=== PATIENT | male | born 1965 | race African-American/Black ===

== ENCOUNTER 2018-12-11 12:01 | Inpatient (IN) | payer BC ==
[2018-12-11 13:22] VITALS: BMI 37.2
--- NOTE | 2018-12-11 15:21 | HP ---
COWS - Scale Resting Pulse: 1= MO 81-100 Sweatin=Flushed/Facial Moisture Restless Observation: 0= Sits Still Pupil Size: 0= Normal to Room Light Bone or Joint Aches: 2= Severe Diffuse Aches Runny Nose/ Eye Tearin= Runny Nose/Eyes GI Upset > 30mins: 0= None Tremor Observation: 1= Tremor [place], Not Seen Yawning Observation: 1= 1-2x During Session Anxiety or Irritability: 1=Feels Anxious/Irritable Goose Flesh Skin: 0=Smooth Skin COWS Score: 10 CIWA Score Nausea/Vomitin-No Nausea/No Vomiting Muscle Tremors: 1-None Visible, but [place] Anxiety: 2 Agitation: 0-Normal Activity Paroxysmal Sweats: 1-Minimal Palms Moist Orientation: 2-Disoriented Date<2 days Tacttile Disturbances: 2-Mild Itch/Numbness/Burn Auditory Disturbances: 1-Very Mild Visual Disturbances: 0-None Headache: 3-Moderate (states chronic headache related to hypertension Reports auditory disturbances that "make him jump out of his skin.") CIWA-Ar Total Score: 12 - Admission Criteria OASAS Guidelines: Admission for Medically Managed Detox: Requires at least one of the followin. CIWA greater than 12 2. Seizures within the past 24 hours 3. Delirium tremens within the past 24 hours 4. Hallucinations within the past 24 hours 5. Acute intervention needed for co occurring medical disorder 6. Acute intervention needed for co occurring psychiatric disorder 7. Severe withdrawal that cannot be handled at a lower level of care (continued vomiting, continued diarrhea, abnormal vital signs) requiring intravenous medication and/or fluids 8. Patient presents the following: Seizures, delirium tremens or hallucinations in the past 12 hours, None of the above Admission Criteria Met: Admission criteria met Admission [facility] Chief Complaint: Patient here for admission for drug treatment. States that his brother recently and his family brought him in. Patient was here in July for Drug treatment for PCP. Allergies/Adverse Reactions: Allergies Allergy/AdvReac Type Severity Reaction Status Date / Time No Known Allergies Allergy Verified 12/11/18 13:12 - Ebola screening Have you traveled outside of the country in the last 21 days: No Have you had contact with anyone from an Ebola affected area: No Have you been sick,other than usual withdrawal symptoms: No Do you have a fever: No - Review of Systems Constitutional: Chills, Fever EENT: reports: Blurred Vision, Double Vision Respiratory: reports: Shortness of Breath, SOB at Rest Cardiac: reports: Lightheadedness, Syncope GI: reports: No Symptoms Reported : reports: No Symptoms Reported Musculoskeletal: reports: Back Pain, Joint Pain, Muscle Pain, Joint Stiffness Integumentary: reports: No Symptoms Reported Neuro: reports: Headache, Unsteady Gait, Other (Reports that he was in [facility] for a brain injury, unable to supply details. Patient is poor historian.) Endocrine: reports: Increased Thirst, Increased Urine Hematology: reports: No Symptoms Reported Psychiatric: reports: Anxious, Disorientated (Does not recall the date, believes it to be 12/08; thought he was in [facility], not [facility]) Patient History - Patient Medical History Hx Anemia: No Hx Asthma: No Hx Chronic Obstructive Pulmonary Disease (COPD): No Hx Cancer: No Hx Cardiac Disorders: No Hx Congestive Heart Failure: No Hx Hypertension: Yes Hx Hypercholesterolemia: No Hx Pacemaker: No HX Cerebrovascular Accident: No Hx Seizures: Yes (Believes he has seizures, but is not sure, has "fallen out.") Hx Dementia: No Hx Diabetes: No Hx Gastrointestinal Disorders: No Hx Liver Disease: No Hx Genitourinary Disorders: No Hx Sexually Transmitted Disorders: No Hx Renal Disease (ESRD): No Hx Thyroid Disease: No Hx Human Immunodeficiency Virus (HIV): No Hx Hepatitis C: No Hx Depression: Yes (has been treated in the past, care discontinued, reason unknown) Hx Suicide Attempt: No Hx Bipolar Disorder: No Hx Schizophrenia: Yes (dx 10 years ago, was dx and tx at [facility] ) - Patient Surgical History Past Surgical History: Yes Hx Abdominal Surgery: Yes (hernia repair x3, dates unknown) Hx Appendectomy: Yes (date unknown) - PPD History Previous Implant?: Yes Documented Results: Negative w/o proof Implanted On Prior [facility] Admission?: No PPD to be Administered?: Yes - Reproductive History Patient is a Female of Child Bearing Age (11 -55 yrs old): No - Smoking Cessation Smoking history: Current every day smoker Have you smoked in the past 12 months: Yes Aproximately how many cigarettes per day: 20 Hx Chewing Tobacco Use: No Initiated information on smoking cessation: Yes 'Breaking Loose' booklet given: 12/11/18 - Substance & Tx. History Hx Alcohol Use: Yes Hx Substance Use: Yes Substance Use Type: Alcohol, Marijuana Hx Substance Use Treatment: Yes (Treated at [facility] in july 2018) - Substances abused Alcohol Substance route: Oral Frequency: Daily Amount used: quart of whiskey and wine Age of first use: 11 Date of last use: 12/11/18 PCP Substance route: Smoking Frequency: 3-6 times per week Amount used: 4 bags Age of first use: 11 Date of last use: 12/11/18 (this morning) Marijuana/Hashish Substance route: Smoking Frequency: Daily Amount used: $25 Age of first use: 11 Date of last use: 12/11/18 Family Disease History - Family Disease History Family Disease History: Diabetes: Grandparent, Father, Mother, [place]: Grandparent, Respiratory: Brother Admission Physical Exam [facility] - Vital Signs Vital Signs: Vital Signs - 24 hr 12/11/18 13:11 Temperature 99 F Pulse Rate 90 Respiratory 18 Rate Blood Pressure 171/108 H - Physical General Appearance: Yes: Nourished, Appropriately Dressed, Mild Distress, Irritable HEENTM: Yes: Hearing grossly Normal, Normocephalic, Normal Voice, KEVIN, Pharynx Normal, Other (edentulism) Respiratory: Yes: Chest Non-Tender, No Respiratory Distress, No Accessory Muscle Use, Wheezing, Expiration Neck: Yes: No masses,lesions,Nodules, Supple, Trachea in good position Breast: Yes: Breast Exam Deferred Cardiology: Yes: Regular Rhythm, Regular Rate, S1, S2 Abdominal: Yes: Normal Bowel Sounds, Non Tender, Soft, Protuberent Genitourinary: Yes: Frequency, Nocturia Back: Yes: Decreased Range of Motion (Limited lateral movement and forward bend. ) Musculoskeletal: Yes: Gait Steady, Other (limited hip joint range of motion.) Extremities: Yes: Normal Capillary Refill, Non-Tender Neurological: Yes: pullman conductor II-XII NML intact, Alert, Other (oriented to self, provider oriented to place, time and date x 3) Lymphatic: Yes: Within Normal Limits - Diagnostic (1) EtOH dependence Current Visit: Yes Status: Chronic Qualifiers: Substance use status: alcohol-induced sleep disorder Qualified Code(s): F10.282 - Alcohol dependence with alcohol-induced sleep disorder (2) PCP abuse Current Visit: Yes Status: Acute (3) Cannabis abuse Current Visit: Yes Status: Acute Cleared for Admission S - Detox or Rehab [facility] Level of Care: Medically Supervised Detox Regimen/Protocol: Librium Claeared for Rehab Admission: No (Patient will be admitted to Detox) Screened but not Admitted - Documentation of Visit Screened but not Admitted: No Breathalyzer - Breathalyzer Breathalyzer: 0 Urine Drug Screen - Test Device Lot number: [id number] Expiration date: 09/11/20 - Control Is test valid?: Yes - Results Drug screen NEGATIVE: No Urine drug screen results: THC-Marijuana Inpatient Rehab Admission - Rehab Decision to Admit Inpatient rehab admission?: No - Initial Determination Are CD services needed?: No Free of communicable disease: Yes Not in need of hospitalization: Yes
[2018-12-11] MEDS ORDERED: MAGNESIUM HYDROX 2400MG/30ML ORAL SUSPENSION 30 ML CUP PO PRN (16:03)
[2018-12-11] MEDS ORDERED: MENTHOL/PHENOL 1 EACH UD MM PRN (16:03)
[2018-12-11] MEDS ORDERED: hydrOXYzine PAMOATE 25 MG CAPSULE (FP) PO PRN (16:03)
[2018-12-11] MEDS ORDERED: IBUPROFEN 400 MG TABLET (FP) PO PRN (16:03)
[2018-12-11] MEDS ORDERED: ACETAMINOPHEN 325 MG TABLET (FP) PO PRN ×2 (16:03)
[2018-12-11] MEDS ORDERED: MAGNESIUM CITRATE 300 ML BOTTLE PO PRN (16:03)
[2018-12-11] MEDS ORDERED: BISMUTH SUBSALICYLATE 524 MG/30 ML UD PO PRN (16:03)
[2018-12-11] MEDS ORDERED: MELATONIN 5 MG TABLETS PO PRN (16:03)
[2018-12-11] MEDS ORDERED: MAG HYDROX/AL HYDROX/SIMETH 30 ML UNIT-DOSE CUP PO PRN (16:03)
[2018-12-11] MEDS ORDERED: NICOTINE POLACRILEX 2 MG GUM BUC PRN (16:03)
[2018-12-11] MEDS ORDERED: chlordiazePOXIDE HCL 25 MG CAPSULE PO PRN (16:07)
[2018-12-11] MEDS ORDERED: LISINOPRIL 10 MG TABLET (FP) PO SCH (16:15)
[2018-12-11] MEDS: chlordiazePOXIDE HCL 25 MG CAPSULE PO SCH ×2 (17:40→22:08)
[2018-12-11] MEDS: THIAMINE HCL 100 MG TABLET (FP) PO SCH (22:08)
[2018-12-12] MEDS: chlordiazePOXIDE HCL 25 MG CAPSULE PO SCH ×4 (05:01→22:05)
--- NOTE | 2018-12-12 09:48 | PN ---
S CIWA - CIWA Score Nausea/Vomitin-Mild Nausea/No Vomiting Muscle Tremors: 3 Anxiety: 1-Mildly Anxious Agitation: 2 Paroxysmal Sweats: 1-Minimal Palms Moist Orientation: 0-Oriented Tacttile Disturbances: 1-Very Mild Itch/Numbness Auditory Disturbances: 0-None Visual Disturbances: 0-None Headache: 2-Mild CIWA-Ar Total Score: 11 BHS Progress Note (SOAP) Subjective: 53 years old male admitted on 12/11/18 for acute alcohol withdrawal sx management doing well with librium detox regimen less headaches mild tremor Objective: 12/12/18 09:48 Vital Signs Temperature 96.6 F L 12/12/18 09:21 Pulse Rate 77 12/12/18 09:21 Respiratory Rate 18 12/12/18 09:21 Blood Pressure 150/96 12/12/18 09:21 O2 Sat by Pulse Oximetry (%) 12/12/18 09:49 lab pending Assessment: 12/12/18 09:49 alcohol withdrawal sx Plan: continue alcohol detox
[2018-12-12] MEDS: LISINOPRIL 10 MG TABLET (FP) PO SCH (10:06)
[2018-12-12] MEDS: PRENATAL VITAMINS W/ FOLIC ACID TABLET (FP) PO SCH (10:06)
[2018-12-12 10:25] LABS: HEMOGLOBIN 13.7 GM/dL (11.7-16.9); MCH 32.1 pg (25.7-33.7); MCHC 33.4 g/dl (32.0-35.9); MEAN CELL VOLUME 95.9 fl (80-96); MEAN PLT VOLUME 7.6 fl (7.5-11.1); PLATELET COUNT 253 K/MM3 (134-434); RBC 4.28 M/mm3 (4.00-5.60); WHITE BLOOD COUNT 6.3 K/mm3 (4.0-10.0)
[2018-12-12 11:00] LABS: ALBUMIN 3.5 g/dl (3.4-5.0); BILIRUBIN,TOTAL 0.4 mg/dL (0.2-1); BLOOD UREA NITROGEN 11.2 mg/dL (7-18); CREATININE 1.1 mg/dL (0.55-1.3); POTASSIUM 4.3 mmol/L (3.5-5.1); TOT PROT 6.8 g/dl (6.4-8.2)
[2018-12-12] MEDS ORDERED: SCOPOLAMINE HYDROBROMIDE 1 PATCH PATCH.TD72 TD SCH (11:30)
--- NOTE | 2018-12-12 12:01 | CONSULT ---
[facility] Psychiatric Consult - Data Date of interview: 12/12/18 Admission source: [facility] Identifying data: First admission to [facility] for this 53 y/o AA male self- referred for detoxification (phencyclidine, cannabis, alcohol, nicotine). Examined at [address] [place] [address]. Patient is , a father of two, domiciled, unemployed and supported on SSI/SSD benefits. Substance Abuse History: Confirmed by patient in this interview. Details in current [facility] report as follows : Smoking history: Current every day smoker. Have you smoked in the past 12 months: Yes. Aproximately how many cigarettes per day: 20. Hx Chewing Tobacco Use: No. Initiated information on smoking cessation: Yes. 'Breaking Loose' booklet given: 12/11/18. - Substance & Tx. History. Hx Alcohol Use: Yes. Hx Substance Use: Yes. Substance Use Type: Alcohol, Marijuana. Hx Substance Use Treatment: Yes (Treated at [facility] in july 2018). - Substances abused. Alcohol. Substance route: Oral. Frequency: Daily. Amount used: quart of whiskey and wine. Age of first use: 11. Date of last use: 12/11/18. PCP. Substance route: Smoking. Frequency: 3-6 times per week. Amount used: 4 bags. Age of first use: 11. Date of last use: (this morning). Marijuana/Hashish. Substance route: Smoking. Frequency : Daily. Amount used: $25. Age of first use: 11. Date of last use: 12/11/18 Medical History: Remarkable for a history of herniorraphies, hypertension, withdrawal-related seizures and appendectomy. Psychiatric History: Patient admits to a history of two psychiatric hospitalizations ([facility]). Diagnosed with Schizophrenia. Mr Sosa reports past treatment with risperdal + cogentin. Not taken since 2011. Patient denies current affiliation with psychiatric care providers (was followed at [facility] clinic about eight years ago). Patient presents with a history of suicide attempts (self-mutilation, wrist-cutting). Physical/Sexual Abuse/Trauma History: Patient denies. Additional Comment: Urine drug screen results: THC-Marijuana. Noted. Mental Status Exam - Mental Status Exam Alert and Oriented to: Time, Place, Person Cognitive Function: Good Patient Appearance: Well Groomed (edentulous) Mood: Hopeful, Euthymic Affect: Appropriate, Normal Range Patient Behavior: Fatigued, Cooperative Speech Pattern: Clear, Appropriate Voice Loudness: Normal Thought Process: Goal Oriented Thought Disorder: Not Present Hallucinations: Denies Suicidal Ideation: Denies Homicidal Ideation: Denies Insight/Judgement: Poor Sleep: Poorly, Difficulty falling asleep Appetite: Good Muscle strength/Tone: Normal Gait/Station: Normal Psychiatric Findings - Problem List ([place] 1, 2,3) (1) EtOH dependence Current Visit: Yes Status: Chronic Qualifiers: Substance use status: alcohol-induced sleep disorder Qualified Code(s): F10.282 - Alcohol dependence with alcohol-induced sleep disorder (2) Cannabis abuse Current Visit: Yes Status: Chronic (3) Nicotine dependence Current Visit: Yes Status: Chronic (4) PCP abuse Current Visit: Yes Status: Chronic (5) Insomnia Current Visit: Yes Status: Chronic (6) History of schizophrenia Current Visit: Yes Status: Chronic (7) Non-compliance Current Visit: Yes Status: Chronic - Initial Treatment Plan Initial Treatment Plan: Psychoeducation. Sleep hygiene. Detoxification. AA meetings. Relapse prevention : discussed with patient. Insomnia is addressed with melatonin at bedtime. Side effects/benefits discussed. Verbal consent granted to MD. Mr Sosa declines to resume risperdal (he remains asymptomatic ) but he is agreeable with a referral to [facility] at the completion of detoxification course. Discussed with counselor Sai Wisdom with patient in attendance. Observation.
[2018-12-12] MEDS: cloNIDine HCL 0.1 MG TABLET PO PRN ×2 (12:52→22:05)
[2018-12-12] MEDS: MECLIZINE HCL 12.5 MG TABLET PO PRN (22:05)
[2018-12-12] MEDS: THIAMINE HCL 100 MG TABLET (FP) PO SCH (22:05)
[2018-12-13] MEDS: chlordiazePOXIDE HCL 25 MG CAPSULE PO SCH ×4 (05:08→22:29)
--- NOTE | 2018-12-13 09:13 | PN ---
[facility] CIWA - CIWA Score Nausea/Vomitin-Mild Nausea/No Vomiting Muscle Tremors: 3 Anxiety: 2 Agitation: 2 Paroxysmal Sweats: 1-Minimal Palms Moist Orientation: 0-Oriented Tacttile Disturbances: 1-Very Mild Itch/Numbness Auditory Disturbances: 0-None Visual Disturbances: 0-None Headache: 0-None Present CIWA-Ar Total Score: 10 S Progress Note (SOAP) Subjective: lonb history of hypertension doing well with lisinopril 10 mg po [id number] reduced S1S2 denies headache no blurred vision Objective: 12/13/18 09:15 Vital Signs Temperature 97.4 F L 12/13/18 06:04 Pulse Rate 71 12/13/18 06:04 Respiratory Rate 18 12/13/18 06:04 Blood Pressure 135/82 12/13/18 06:04 O2 Sat by Pulse Oximetry (%) Laboratory Last Values WBC 6.3 K/mm3 (4.0-10.0) 12/12/18 07:30 RBC 4.28 M/mm3 (4.00-5.60) 12/12/18 07:30 Hgb 13.7 GM/dL (11.7-16.9) 12/12/18 07:30 Hct 41.0 % (35.4-49) 12/12/18 07:30 MCV 95.9 fl (80-96) 12/12/18 07:30 MCH 32.1 pg (25.7-33.7) 12/12/18 07:30 MCHC 33.4 g/dl (32.0-35.9) 12/12/18 07:30 RDW 15.0 % (11.9-15.9) 12/12/18 07:30 Plt Count 253 K/MM3 (134-434) 12/12/18 07:30 MPV 7.6 fl (7.5-11.1) 12/12/18 07:30 Sodium 143 mmol/L (136-145) 12/12/18 07:30 Potassium 4.3 mmol/L (3.5-5.1) 12/12/18 07:30 Chloride 108 mmol/L (98-107) H 12/12/18 07:30 Carbon Dioxide 30 mmol/L (21-32) 12/12/18 07:30 Anion Gap 5 MMOL/L (8-16) L 12/12/18 07:30 BUN 11.2 mg/dL (7-18) 12/12/18 07:30 Creatinine 1.1 mg/dL (0.55-1.3) 12/12/18 07:30 Est GFR (CKD-EPI)AfAm 87.13 12/12/18 07:30 Est GFR (CKD-EPI)NonAf 75.17 12/12/18 07:30 Random Glucose 92 mg/dL (74-106) 12/12/18 07:30 Calcium 9.0 mg/dL (8.5-10.1) 12/12/18 07:30 Total Bilirubin 0.4 mg/dL (0.2-1) 12/12/18 07:30 AST 14 U/L (15-37) L 12/12/18 07:30 ALT 33 U/L (13-61) 12/12/18 07:30 Alkaline Phosphatase 59 U/L (45-117) 12/12/18 07:30 Total Protein 6.8 g/dl (6.4-8.2) 12/12/18 07:30 Albumin 3.5 g/dl (3.4-5.0) 12/12/18 07:30 RPR Titer Nonreactive (NONREACTIVE) 12/12/18 07:30 HIV 1&2 Antibody Screen Negative 12/12/18 07:30 HIV P24 Antigen Negative 12/12/18 07:30 lab noted Assessment: 12/13/18 09:15 alcohol withdrawal sx Plan: continue alcohol detox
[2018-12-13] MEDS: PRENATAL VITAMINS W/ FOLIC ACID TABLET (FP) PO SCH (10:21)
[2018-12-13] MEDS: cloNIDine HCL 0.1 MG TABLET PO PRN ×2 (10:23→17:30)
[2018-12-13] MEDS: LISINOPRIL 10 MG TABLET (FP) PO SCH (10:23)
[2018-12-13] MEDS: MECLIZINE HCL 12.5 MG TABLET PO PRN (17:30)
[2018-12-13] MEDS: THIAMINE HCL 100 MG TABLET (FP) PO SCH (22:29)
[2018-12-14] MEDS ORDERED: chlordiazePOXIDE HCL 10 MG CAPSULE PO PRN
[2018-12-14] MEDS: chlordiazePOXIDE HCL 10 MG CAPSULE PO SCH ×4 (05:15→22:03)
[2018-12-14] MEDS: PRENATAL VITAMINS W/ FOLIC ACID TABLET (FP) PO SCH (10:08)
[2018-12-14] MEDS: LISINOPRIL 10 MG TABLET (FP) PO SCH (10:10)
[2018-12-14] MEDS: cloNIDine HCL 0.1 MG TABLET PO PRN ×2 (10:10→22:03)
[2018-12-14] MEDS: MECLIZINE HCL 12.5 MG TABLET PO PRN ×2 (12:38→22:03)
[2018-12-14] MEDS ORDERED: LISINOPRIL 10 MG TABLET (FP) PO ONE (16:26)
--- NOTE | 2018-12-14 16:28 | PN ---
[facility] CIWA - CIWA Score Nausea/Vomitin-No Nausea/No Vomiting Muscle Tremors: None Anxiety: 4-Mod. Anxious/Guarded Agitation: 1-Slight > Activity Paroxysmal Sweats: No Perspiration Orientation: 0-Oriented Tacttile Disturbances: 1-Very Mild Itch/Numbness Auditory Disturbances: 2-Mild Harshness/Frighten Visual Disturbances: 0-None Headache: 0-None Present CIWA-Ar Total Score: 8 S Progress Note (SOAP) Subjective: Fatigue, Anxious. Objective: PATIENT A & O X 3, OBSERVED AMBULATING ON UNIT UNASSISTED. IN NO ACUTE DISTRESS. 12/14/18 16:24 Vital Signs Temperature 98.3 F 12/14/18 13:01 Pulse Rate 84 12/14/18 13:01 Respiratory Rate 18 12/14/18 13:01 Blood Pressure 150/98 12/14/18 13:01 O2 Sat by Pulse Oximetry (%) Laboratory Tests 12/12/18 12/12/18 12/12/18 07:30 07:30 07:30 WBC 6.3 RBC 4.28 Hgb 13.7 Hct 41.0 MCV 95.9 MCH 32.1 MCHC 33.4 RDW 15.0 Plt Count 253 MPV 7.6 Sodium 143 Potassium 4.3 Chloride 108 H Carbon Dioxide 30 Anion Gap 5 L BUN 11.2 Creatinine 1.1 Est GFR (CKD-EPI)AfAm 87.13 Est GFR (CKD-EPI)NonAf 75.17 Random Glucose 92 Calcium 9.0 Total Bilirubin 0.4 AST 14 L ALT 33 Alkaline Phosphatase 59 Total Protein 6.8 Albumin 3.5 RPR Titer Nonreactive HIV 1&2 Antibody Screen HIV P24 Antigen 12/12/18 07:30 WBC RBC Hgb Hct MCV MCH MCHC RDW Plt Count MPV Sodium Potassium Chloride Carbon Dioxide Anion Gap BUN Creatinine Est GFR (CKD-EPI)AfAm Est GFR (CKD-EPI)NonAf Random Glucose Calcium Total Bilirubin AST ALT Alkaline Phosphatase Total Protein Albumin RPR Titer HIV 1&2 Antibody Screen Negative HIV P24 Antigen Negative LABS NOTED. RESULTS OF DETOX ADMISSION QFT /TB TEST PENDING. 12/14/18 16:27 Assessment: 12/14/18 16:27 WITHDRAWAL SYMPTOMS. HYPERTENSION. Plan: CONTINUE DETOX. INCREASE DAILY DOSE OF LISINOPRIL TO 20 MG PO DAILY FOR ELEVATED BLOOD PRESSURE DESPITE TREATMENT.
[2018-12-14] MEDS: THIAMINE HCL 100 MG TABLET (FP) PO SCH (22:03)
[2018-12-15] MEDS ORDERED: chlordiazePOXIDE HCL 10 MG CAPSULE PO SCH (05:00)
[2018-12-15 09:22] VITALS: BP 148/96; PULSE 74; TEMP 98
[2018-12-15] MEDS ORDERED: LISINOPRIL 10 MG TABLET (FP) PO SCH (10:00)
[2018-12-15] MEDS: PRENATAL VITAMINS W/ FOLIC ACID TABLET (FP) PO SCH (10:08)
[2018-12-15] MEDS: MECLIZINE HCL 12.5 MG TABLET PO PRN (10:10)
--- NOTE | 2018-12-15 16:07 | PN ---
S CIWA - CIWA Score Nausea/Vomitin-No Nausea/No Vomiting Muscle Tremors: None Anxiety: 4-Mod. Anxious/Guarded Agitation: 3 Paroxysmal Sweats: No Perspiration Orientation: 0-Oriented Tacttile Disturbances: 1-Very Mild Itch/Numbness Auditory Disturbances: 0-None Visual Disturbances: 0-None Headache: 0-None Present CIWA-Ar Total Score: 8 BHS Progress Note (SOAP) Subjective: Fatigue, Anxious. Objective: PATIENT A & O X 3, OBSERVED AMBULATING ON UNIT UNASSISTED. IN NO ACUTE DISTRESS. 12/15/18 16:07 Vital Signs Temperature 98.0 F 12/15/18 09:22 Pulse Rate 74 12/15/18 09:22 Respiratory Rate 18 12/15/18 09:22 Blood Pressure 148/96 12/15/18 09:22 O2 Sat by Pulse Oximetry (%) Laboratory Tests 12/12/18 12/12/18 12/12/18 07:30 07:30 07:30 WBC 6.3 RBC 4.28 Hgb 13.7 Hct 41.0 MCV 95.9 MCH 32.1 MCHC 33.4 RDW 15.0 Plt Count 253 MPV 7.6 Sodium 143 Potassium 4.3 Chloride 108 H Carbon Dioxide 30 Anion Gap 5 L BUN 11.2 Creatinine 1.1 Est GFR (CKD-EPI)AfAm 87.13 Est GFR (CKD-EPI)NonAf 75.17 Random Glucose 92 Calcium 9.0 Total Bilirubin 0.4 AST 14 L ALT 33 Alkaline Phosphatase 59 Total Protein 6.8 Albumin 3.5 RPR Titer HIV 1&2 Antibody Screen HIV P24 Antigen TB (QFT) Incubation TB Test (QFT) Nil 0.03 TB Test (QFT) Mitogen >10.00 TB Test (QFT) Antigen 0.03 TB Test (QFT) Negative TB Positive Criteria 12/12/18 12/12/18 07:30 07:30 WBC RBC Hgb Hct MCV MCH MCHC RDW Plt Count MPV Sodium Potassium Chloride Carbon Dioxide Anion Gap BUN Creatinine Est GFR (CKD-EPI)AfAm Est GFR (CKD-EPI)NonAf Random Glucose Calcium Total Bilirubin AST ALT Alkaline Phosphatase Total Protein Albumin RPR Titer Nonreactive HIV 1&2 Antibody Screen Negative HIV P24 Antigen Negative TB (QFT) Incubation TB Test (QFT) Nil TB Test (QFT) Mitogen TB Test (QFT) Antigen TB Test (QFT) TB Positive Criteria LABS NOTED. Assessment: 12/15/18 16:07 WITHDRAWAL SYMPTOMS. Plan: CONTINUE DETOX.
--- NOTE | 2018-12-15 16:12 | DS ---
[facility] Detox Discharge Summary Admission Date: 12/11/18 Discharge Date: 12/15/18 - History Present History: Alcohol Dependence, Cannabis Dependence, Pcp Dependence Additional Comments: PATIENT REPORTS THAT HE HAS A FAMILY MATTER TO ATTEND AND THAT HE IS UNABLE TO REMAIN TO COMPLETE DETOX REGIMEN. RISKS OF LEAVING DETOX UNIT AGAINST MEDICAL ADVICE AND PRIOR TO COMPLETION OF DETOX REGIMEN EXPLAINED TO PATIENT. PATIENT ADVISED TO GO IMMEDIATELY TO NEAREST ER SHOULD ANY INTOLERABLE WITHDRAWAL / DETOX SYMPTOMS DEVELOP AT ANY TIME. PATIENT VERBALIZED UNDERSTANDING OF ALL INFORMATION / RECOMMENDATIONS PRESENTED TO HIM PRIOR TO DEPARTURE FROM DETOX UNIT. PATIENT DECLINED OFFER OF MEDICATION PRESCRIPTION FOR HOME MEDICATION ( LISINOPRIL) AT TIME OF DISCHARGE FROM DETOX, NOTING THAT HE CURRENTLY HAS ADEQUATE SUPPLIES OF ALL PRESCRIBED HOME MEDICATIONS AT HOME. PATIENT LEFT DETOX UNIT IN STABLE MEDICAL CONDITION. Pertinent Past History: History Of Seizures, HTN , Depression, Schizophrenia, Insomnia, Nicotine Dependence. - Physical Exam Results Vital Signs: Vital Signs Temperature 98.0 F 12/15/18 09:22 Pulse Rate 74 12/15/18 09:22 Respiratory Rate 18 12/15/18 09:22 Blood Pressure 148/96 12/15/18 09:22 O2 Sat by Pulse Oximetry (%) Pertinent Admission Physical Exam Findings: WITHDRAWAL SYMPTOMS. Laboratory Tests 12/12/18 12/12/18 12/12/18 07:30 07:30 07:30 WBC 6.3 RBC 4.28 Hgb 13.7 Hct 41.0 MCV 95.9 MCH 32.1 MCHC 33.4 RDW 15.0 Plt Count 253 MPV 7.6 Sodium 143 Potassium 4.3 Chloride 108 H Carbon Dioxide 30 Anion Gap 5 L BUN 11.2 Creatinine 1.1 Est GFR (CKD-EPI)AfAm 87.13 Est GFR (CKD-EPI)NonAf 75.17 Random Glucose 92 Calcium 9.0 Total Bilirubin 0.4 AST 14 L ALT 33 Alkaline Phosphatase 59 Total Protein 6.8 Albumin 3.5 RPR Titer HIV 1&2 Antibody Screen HIV P24 Antigen TB (QFT) Incubation TB Test (QFT) Nil 0.03 TB Test (QFT) Mitogen >10.00 TB Test (QFT) Antigen 0.03 TB Test (QFT) Negative TB Positive Criteria 12/12/18 12/12/18 07:30 07:30 WBC RBC Hgb Hct MCV MCH MCHC RDW Plt Count MPV Sodium Potassium Chloride Carbon Dioxide Anion Gap BUN Creatinine Est GFR (CKD-EPI)AfAm Est GFR (CKD-EPI)NonAf Random Glucose Calcium Total Bilirubin AST ALT Alkaline Phosphatase Total Protein Albumin RPR Titer Nonreactive HIV 1&2 Antibody Screen Negative HIV P24 Antigen Negative TB (QFT) Incubation TB Test (QFT) Nil TB Test (QFT) Mitogen TB Test (QFT) Antigen TB Test (QFT) TB Positive Criteria LABS NOTED. - Medication Discharge Medications: Ambulatory Orders Lisinopril 10 mg PO DAILY 12/11/18 Meclizine HCl 12.5 mg PO DAILY PRN #15 tablet 12/15/18 - Diagnosis (1) Cannabis abuse Status: Chronic (2) EtOH dependence Status: Chronic Qualifiers: Substance use status: in withdrawal Complication of substance-induced condition: uncomplicated Qualified Code(s): F10.230 - Alcohol dependence with withdrawal, uncomplicated (3) Nicotine dependence Status: Chronic Qualifiers: Nicotine product type: cigarettes Substance use status: uncomplicated Qualified Code(s): F17.210 - Nicotine dependence, cigarettes, uncomplicated (4) History of schizophrenia Status: Chronic (5) Insomnia Status: Chronic Qualifiers: Insomnia type: unspecified Qualified Code(s): G47.00 - Insomnia, unspecified (6) Non-compliance Status: Chronic (7) PCP abuse Status: Chronic - AMA Did Patient Leave Against Medical Advice: Yes (PT. HAD FAMILY ISSUE ADN COULD NOT REMAIN TO COMPLETE DETOX.)
[2018-12-16] MEDS ORDERED: chlordiazePOXIDE HCL 10 MG CAPSULE PO ONE (05:00)
== END 2018-12-15 11:00 | disposition left against medical advice (07) | DRG 894 ==
LOC: YASAS 12:01 → Y3N 16:51
PROVIDERS: ADMIT Surgery; ATTEND Surgery
PROC: HZ2ZZZZ Detoxification Services for Substance Abuse Treatment (ICD-10-PCS; principal; 2018-12-11)
DX: F10.230 Alcohol dependence with withdrawal, uncomplicated (principal); F12.10 Cannabis abuse, uncomplicated; F16.10 Hallucinogen abuse, uncomplicated; F17.210 Nicotine dependence, cigarettes, uncomplicated; I10 Essential (primary) hypertension; G47.00 Insomnia, unspecified; Z91.19 Patient's noncompliance with other medical treatment and regimen; Z86.69 Personal history of other diseases of the nervous system and sense organs
CPT/HCPCS: 36415; 80053; 85027; 86480; 86593; 87389; J0735